=== PATIENT | female | born 1950 | race Caucasian/White ===

== ENCOUNTER 2016-12-25 07:51 | Outpatient (CLI) | payer BC | END 2016-12-25 19:12 | disposition home or self-care (01) | LOC: SMA 07:51 | PROVIDERS: ATTEND Family Medicine | DX: Z12.31 Encounter for screening mammogram for malignant neoplasm of breast (principal) | CPT/HCPCS: 77067; G0202 ==

== ENCOUNTER 2017-01-16 07:40 | Outpatient (CLI) | payer BC | END 2017-01-16 19:26 | disposition home or self-care (01) | LOC: SMA 07:40 | PROVIDERS: ATTEND Family Medicine | DX: R92.8 Other abnormal and inconclusive findings on diagnostic imaging of breast (principal); I25.10 Atherosclerotic heart disease of native coronary artery without angina pectoris | CPT/HCPCS: G0206 ==